=== PATIENT | male | born 1970 | race Caucasian/White ===

== ENCOUNTER 2022-08-26 15:37 | Outpatient (CLI) | payer OTHER, SELFPAY ==
[2022-08-26 19:51] LABS: Chloride* 107 mmol/L (96-114); Potassium* 4.5 mmol/L (3.6-5.1); Sodium* 137 mmol/L (135-149)
[2022-08-26 19:53] LABS: Bilirubin Total* 0.3 mg/dL (0.1-1.5); Carbon Dioxide* 24 mmol/L (20-32); Cholesterol* 216 mg/dL (90-199); Creatinine* 1.1 mg/dL (0.5-1.5); Estimated Glomerular Filt Rate 81 ml/min
[2022-08-26 19:54] LABS: Alanine Aminotransferase* 38 U/L (4-50); Alkaline Phosphatase* 88 U/L (40-150); Aspartate Amino Transferase* 32 U/L (12-35); Blood Urea Nitrogen* 29 mg/dL (7-30); Calcium* 9.3 mg/dL (8.4-10.6); Glucose* 143 mg/dL (60-115); Total Protein* 6.6 g/dL (6.0-8.3)
[2022-08-26 19:55] LABS: HDL Cholesterol* 46 mg/dL (>=40); LDL Cholesterol Calculated 69 mg/dL (<100)
[2022-08-26 19:57] LABS: Creatinine Urine 78.4 mg/dL
[2022-08-26 20:13] LABS: Triglycerides* 506 mg/dL (40-149)
[2022-08-26 22:43] LABS: Microalbumin Creatinine Ratio 4420 mg/g (0-30); Microalbumin Urine 347 mg/dL
[2022-09-01 17:26] LABS: Sex Hormone Binding Globulin 27 nmol/L (19-76); Testosterone, Free LC-MS/MS 63.1 pg/mL (47.0-244.0); Testosterone, LC-MS/MS 316 ng/dL (300-890)
== END 2022-08-26 15:38 | disposition home or self-care (01) ==
LOC: LKVREF 15:38
PROVIDERS: PCP Family Medicine; Visit Provider Family Medicine
DX: E11.9 Type 2 diabetes mellitus without complications (principal); E78.2 Mixed hyperlipidemia; F41.8 Other specified anxiety disorders; I10 Essential (primary) hypertension; R68.82 Decreased libido; E11.29 Type 2 diabetes mellitus with other diabetic kidney complication; R80.9 Proteinuria, unspecified
CPT/HCPCS: 80053; 80061; 82043; 82570; 84153; 84270; 84402; 84403

== ENCOUNTER 2022-08-28 11:06 | Outpatient (CLI) | payer OTHER, SELFPAY ==
[2022-08-28 22:10] LABS: HDL Cholesterol* 36 mg/dL (>=40)
[2022-08-28 22:17] LABS: Glucose* 97 mg/dL (60-115)
[2022-08-28 22:47] LABS: Cholesterol* 242 mg/dL (90-199)
[2022-08-28 23:08] LABS: LDL Cholesterol Calculated 70 mg/dL (<100); Triglycerides* 681 mg/dL (40-149)
== END 2022-08-28 11:07 | disposition home or self-care (01) ==
PROVIDERS: PCP Family Medicine; Visit Provider Family Medicine
DX: E78.2 Mixed hyperlipidemia; E11.29 Type 2 diabetes mellitus with other diabetic kidney complication; R80.9 Proteinuria, unspecified
CPT/HCPCS: 80061; 82947; 84270; 84402; 84403

== ENCOUNTER 2022-10-07 12:53 | Outpatient (CLI) | payer OTHER, SELFPAY ==
[2022-10-07 18:03] LABS: Microalbumin Urine 135 mg/dL
[2022-10-07 19:30] LABS: Creatinine Urine 48.4 mg/dL; Microalbumin Creatinine Ratio 2780 mg/g (0-30)
[2022-10-09 20:32] LABS: Kappa Qnt Free Light Chains 31.84 mg/L (3.30-19.40); Kappa-Lambda Qt FLC W/ Ratio 1.11 (0.26-1.65); Lambda Qnt Free Light Chains 28.67 mg/L (5.71-26.30)
[2022-10-10 02:51] LABS: Complement Component 3 158 mg/dL (90-180); Complement Component 4 33 mg/dL (10-40)
[2022-10-10 22:02] LABS: Albumin 3.73 g/dL (3.75-5.01); Alpha 1 Globulin 0.28 g/dL (0.19-0.46); Alpha 2 Globulin 0.84 g/dL (0.48-1.05); Total Protein, Serum 6.7 g/dL (6.3-8.2)
[2022-10-12 05:44] LABS: ANCA IFA Pattern None Detected (None Detected); ANCA IFA Titer <1:20 (<1:20); Myeloperoxidase (MPO) Ab, IgG 3 AU/mL (0-19); Serine Proteinase 3 Ab IgG 0 AU/mL (0-19)
== END 2022-10-07 12:54 | disposition home or self-care (01) ==
PROVIDERS: PCP Family Medicine; Visit Provider Internal Medicine Nephrology
DX: Z00.00 Encounter for general adult medical examination without abnormal findings (principal); E11.29 Type 2 diabetes mellitus with other diabetic kidney complication; E11.9 Type 2 diabetes mellitus without complications; I10 Essential (primary) hypertension; R80.9 Proteinuria, unspecified; E78.2 Mixed hyperlipidemia; R68.82 Decreased libido
CPT/HCPCS: 82043; 82310; 82570; 82595; 83516; 83520; 83970; 84165; 86160; 86225; 86255

== ENCOUNTER 2023-03-12 12:23 | Outpatient (CLI) | payer OTHER, SELFPAY | END 2023-03-12 12:24 | disposition home or self-care (01) | LOC: LKVREF 12:25 | PROVIDERS: PCP Family Medicine; Visit Provider Physician Assistant | DX: L03.90 Cellulitis, unspecified (principal); Z11.9 Encounter for screening for infectious and parasitic diseases, unspecified | CPT/HCPCS: 86618 ==

== ENCOUNTER 2023-04-28 11:08 | Outpatient (CLI) | payer OTHER, SELFPAY | END 2023-04-28 11:09 | disposition home or self-care (01) | PROVIDERS: PCP Family Medicine; Visit Provider Family Medicine | DX: E11.29 Type 2 diabetes mellitus with other diabetic kidney complication (principal); E11.9 Type 2 diabetes mellitus without complications; I10 Essential (primary) hypertension; F41.8 Other specified anxiety disorders; F98.8 Other specified behavioral and emotional disorders with onset usually occurring in childhood and adolescence; R80.9 Proteinuria, unspecified; M10.9 Gout, unspecified; R68.82 Decreased libido; E78.2 Mixed hyperlipidemia | CPT/HCPCS: 80061; 80076; 82043; 82570; 84550 ==

== ENCOUNTER 2023-05-04 16:57 | Outpatient (CLI) | payer OTHER, SELFPAY | END 2023-05-04 16:58 | disposition home or self-care (01) | LOC: NFLDREF 05-06 13:50 | PROVIDERS: PCP Family Medicine; Referring Provider Family Medicine; Visit Provider Family Medicine | DX: E11.9 Type 2 diabetes mellitus without complications (principal); E11.29 Type 2 diabetes mellitus with other diabetic kidney complication; F41.8 Other specified anxiety disorders; F98.8 Other specified behavioral and emotional disorders with onset usually occurring in childhood and adolescence; I10 Essential (primary) hypertension; R80.9 Proteinuria, unspecified | CPT/HCPCS: 82043; 82570; 84156 ==

== ENCOUNTER 2024-02-08 12:32 | Outpatient (CLI) | payer OTHER, SELFPAY ==
--- OUTSIDE RECORDS SUMMARY | 2024-02-08 12:35 | XMS_ITS | Continuity of Care Document ---
Author Name Unknown Organization [facility] Address [address] [address] [place] [address] Phone Care Team Providers Care Density Control Puncher Name Role Phone Unavailable Unavailable Unavailable Allergies, [...] Copied on Encounter Offic/outpt E&m Estab Low-mod [facility], [address] [address], [place], [place], [id number], [place] tel:[phone] [facility] Non-alcoholic Fatty LiverAbnormal Liver Enzymes 8 No Information Referring [place]: [place], [address] [facility] [place], [address]. tel:[phone] Offic Cons New/estab Mod 40 Mi [facility], [address] [address], [place], [place], [id number], [place] tel:[phone] [facility] Abnormal Liver Enzymes 8-200 8 Pamela Franks. [address] [facility], [address], [place], [place], [address], [place]. tel:[phone] Referring [place]: [place], [address] [place], [address]. tel:[phone] Family History Family Member Type Diagnosis Age At Onset First degree family history Problem (finding) Colon Polyps First degree family history Problem (finding) No history of Ulcerative Colitis First degree family history Problem (finding) No history of Cancer, colon First degree family history Problem (finding) No history of Crohn's Payers Payer name Insurance type Covered democrat ID Authoriza tion(s) No Information Social History [...]
== END 2024-02-08 12:33 | disposition home or self-care (01) ==
PROVIDERS: PCP Family Medicine; Visit Provider Family Medicine
DX: E11.29 Type 2 diabetes mellitus with other diabetic kidney complication (principal); R80.9 Proteinuria, unspecified; Z79.84 Long term (current) use of oral hypoglycemic drugs; Z12.5 Encounter for screening for malignant neoplasm of prostate; Z13.0 Encounter for screening for diseases of the blood and blood-forming organs and certain disorders involving the immune mechanism
CPT/HCPCS: 80061; 80069; 82043; 82570; 82728; 83540; 83550; 84450; 84460; 84550; G0103

== ENCOUNTER 2024-02-09 15:30 | Outpatient (CLI) | payer OTHER, SELFPAY ==
--- OUTSIDE RECORDS SUMMARY | 2024-02-10 06:55 | XMS_ITS ---
Author Name Unknown Organization [facility] Address [address] [place] [address] Care Team Providers Care Supervisor Name Role Phone Unavailable Unavailable Unavailable Surgery Details Not on file Complications Check Surgery Details section. Procedure Estimated Blood Loss Check Surgery Details section. Procedure Findings Check Surgery Details section. Procedure Specimens Taken Check Surgery Details section.
--- OUTSIDE RECORDS SUMMARY | 2024-02-10 06:55 | XMS_ITS | Clinical Summary ---
Author Name Unknown Organization [facility] Address [address] [place] [address] Care Team Providers Care Talent Management Specialist Name Role Phone Unavailable Primary Care Provider Unavailabl e Source Comments You are receiving this document as you are listed as the primary care provider,follow-up provider, or the patient has been referred to you for consultation.This is in compliance with the Medicare andMedicaid EHR Incentive Program,which states Providers who transition their patient to another setting of careor provider of care or refers their patient to another provider of care shouldprovide summary care record for each transition of care or referral. [facility] Allergies Active Allergy Reactions Criticality Noted Date Comments Amlodipine Other, see comments Low 02/06/2022 Varenicline Other, see comments 11/20/2016 suicidal thoughts Zolpidem Other, see comments 11/20/2016 hallucinations Medications Medication Sig Dispensed Refills Start Date End Date Status allopurinol (ZYLOPRIM) 100 MG tablet Take 200 mg by mouth daily. 01/09/2022 Active hydroCHLOROthiazide (ORETIC) 25 MG tablet Daily Act damián losartan (COZAAR) 100 MG tablet Take 100 mg by mouth daily. 01/14/2022 Active metFORMIN XR (GLUCOPHAGE XR) 500 MG 24 hour release tablet Take 500 mg by mouth two times a day. 08/30/2021 Active metoprolol succinate (TOPROL XL) 50 MG 24 hour release tablet Take by mouth. 01/14/2022 A ctive rosuvastatin (CRESTOR) 40 MG tablet Take 40 mg by mouth daily. 01/14/2022 Active nicotine (NICODERM CQ) 21 MG/24HR patch Daily Active nicotine (NICORETTE) 4 MG gum Every 1 Hour as needed Active Active Problems No known active problems Social History Tobacco Use Types Packs/Day Years Used Date Smoking Tobacco: Every Day Cigarettes Sex and Gender Information Value Date Recorded Sex Assigned at Not on file Gender Identity Not on file Sexual Orientation Not on file Last Filed Vital Signs Vital Sign Reading Time Taken Comments Blood Pressure 117/72 02/06/2022 6:41 PM CDT Pulse 76 02/06/2022 6:41 PM CDT Temperature 36.9 ??C (98.5 ??F) 02/06/2022 6:41 PM CD T Respiratory Rate 18 02/06/2022 6:41 PM CDT Oxygen Saturation 99% 02/06/2022 6:41 PM CDT Inhaled Oxygen Concentration - - Weight - - Height - - Body Mass Index - - Plan of Treatment Health Maintenance Due Date Last Done Comments Colon Cancer Screening Plan Due 1970 Hep C Screening (Preventive Services) 1970 PSA Screening Discussion 1970 HIV Screening (Preventive Services) 1986 Adult Preventive Visit 1988 HepB (1) 1989 Cholesterol 2005 Pneumococcal (2 - PCV) 09/06/2010 09/06/2009 Zoster/Shingles (1 of 2) 2020 COVID-19 Vaccine (3 - 2022-2 4 season) 2023 01/11/2021, 12/14/2020 Influenza (Season Ended) 2024 019, 09/18/2017, 07/27/2016 DTaP/Tdap/Td (2 - Tdap) 11/20/2026 11/20/19 17, 10/29/2006 HepA Aged Out No longer eligi ble based on patient's age to complete this topic Hib Aged Out No longer eligi ble based on patient's age to complete this topic IPV (Polio) Aged Out No longer eligi ble based on patient's age to complete this topic MCV4 Aged Out No longer eligi ble based on patient's age to complete this topic
--- OUTSIDE RECORDS SUMMARY | 2024-02-10 06:55 | XMS_ITS | Referral Summary ---
Author Name Unknown Organization [facility] Address [address] [place] [address] Care Team Providers Care Drawbench Operator Name Role Phone Juma Bravo MD Primary Care Provider [phone] Allergies Active Allergy Reactions Criticality Noted Date Comments No Known Drug Allergy 06/22/2003 Medications Medication Sig Dispensed Refills Start Date End Date Status allopurinol (ZYLOPRIM) 100 MG tablet Take 100 mg by mouth daily Active DULoxetine (CYMBALTA) 30 MG capsule Take 30 mg by mouth daily Active losartan-hydrochlor othiazide (HYZAAR) 100-25 MG tablet Take 1 tablet by mouth daily Active metoprolol succinate ER (TOPROL-XL) 50 MG 24 hr tablet Take 150 mg by mouth daily Active indomethacin (INDOCIN) 50 MG capsule Take 50 mg by mouth 3 times daily (with meals) As needed Active aspirin 81 MG EC tablet Take 81 mg by mouth daily Active fenofibrate micronized (LOFIBRA) 200 MG capsuleIndications: Hypertriglyceridemi a Take 1 capsule (200 mg) by mouth every morning (before breakfast) 90 capsule 3 06/01/2019 Active rosuvastatin (CRESTOR) 40 MG tabletIndications:H ypertriglyceridemia Take 1 tablet (40 mg) by mouth daily 90 tablet 3 06/20/2019 Active omega-3 acid ethyl esters (LOVAZA) 1 g capsuleIndications: Hyperlipidemia LDL goal <100,Hypertriglycer idemia Take 2 capsules (2 g) by mouth 2 times daily 360 capsule 10/25/2019 Active Active Problems Problem Noted Date Diagnosed Date Essential hypertension, benign 05/12/2019 Tobacco abuse 05/12/2019 ADD (attention deficit disorder) 05/10/2019 Gout 05/10/2019 History of peritonsillar abscess 05/10/2019 Hypertension 05/10/2019 IGT (impaired glucose tolerance) 05/10/2019 Memory loss 05/10/2019 Mixed hyperlipidemia 05/10/2019 DM2 (diabetes mellitus, type 2) 05/10/2019 Tonsillar mass 05/10/2019 Hypertriglyceridemia 05/10/2019 Depression with anxiety 11/25/2016 Sleep apnea 05/29/2008 Social History Tobacco Use Types Packs/Day Years Used Date Smoking Tobacco: Every Day Cigarettes 1 15 Smokeless Tobacco: Never Tobacco Cessation:Ready to Q uit: No; Counseling Given: Yes Alcohol Use Standard Drinks/Week Comments Yes 0 (1 standard drink = 0.6 oz pur e alcohol) moderate use AUDIT-C Answer Date Recorded Q1: How often do you have a drink containing alc ohol? 2-4 times a month 05/12/2019 Average Number of Drinks Not on file 019 Frequency of Binge Drinking Not on file 04/28 Adolescent Education Answer Date Record ed Getting School Help Needed Not on file 07/05 Sex and Gender Information Value Date Recorded Sex Assigned at Not on file Gender Identity Not on file Sexual Orientation Not on file Last Filed Vital Signs Vital Sign Reading Time Taken Comments Blood Pressure 110/72 02/06/2022 8:45 PM CDT Pulse 60 02/06/2022 8:45 PM CDT Temperature 37.1 ??C (98.7 ??F) 02/06/2022 7:07 PM CD T Respiratory Rate 18 02/06/2022 7:07 PM CDT Oxygen Saturation 100% 02/06/2022 7:07 PM CDT Inhaled Oxygen Concentration - - Weight 86.2 kg (190 lb) 02/06/2022 7:07 PM CDT Height 182.9 cm (6') 06/20/2019 8:50 AM CDT Body Mass Index 25.77 06/20/2019 8:50 AM CDT Plan of Treatment Not on file Procedures Procedure Name Priority Date/Time Associated Diagnosis Comments BASIC METABOLIC PANEL STAT 02/06/2022 7:16 PM CDT LIPID PROFILE STAT 06/20/2019 8:10 AM CDT Hypertriglyceridemia Mixed hyperlipidemia HEMOGLOBIN A1C Routine 05/09/2019 from Last 3 Months or Most Recently Relevant to Health Maintenance Results * (ABNORMAL) Basic metabolic panel (02/06/2022 7:16 PM CDT) Sodium 139 133 - 144 mmol/L 02/06/2022 7:54 PM CDT LABORATORY Potassium 4.3 3.4 - 5.3 mmol/L 02/06/2022 7:54 PM CDT [facility] Chloride 106 94 - 109 mmol/L 02/06/2022 7:54 PM CDT [facility] Carbon Dioxide (CO2) 27 20 - 32 mmol/L 02/06/2022 7:54 PM CDT LABORATORY Anion Gap 6 3 - 14 mmol/L 02/06/2022 7:54 PM CDT LABORATORY Urea Nitrogen 31(H) 7 - 30 mg/dL 02/06/2022 7:54 PM CDT LABORATORY Creatinine 0.93 0.66 - 1.25 mg/dL 02/06/2022 7:54 PM CDT LABORATORY Calcium 9.1 8.5 - 10.1 mg/dL 02/06/2022 7:54 PM CDT LABORATORY Glucose 147(H) 70 - 99 mg/dL 02/06/2022 7:54 PM CDT [facility] GFR Estimate >90 >60 mL/min/1.7 3m2 02/06/2022 7:54 PM CDT LABORATORY Comment:Effective August 292020 eGFRcr in adults is calculated using the 2020 CKD-EPI creatinine equation which includes age and gender (Sarah et al., NEJM, DOI: 10.1056/JCHFid3458344) Blood BLOOD SPECIMEN / Unknown Venipuncture / Unknown 02/06/2022 7:16 PM CDT 02/06/2022 7:21 PM CDT Chayo Brown MD LAB - BLOOD [facility] Organization Address City/State/ZIP Co de Phone Number LABORATORY [facility] [address] Lab (1st floor, no room number) [place] [address], [facility] [phone] * (ABNORMAL) Lipid Profile (06/20/2019 8:10 AM CDT) Cholesterol 228(H) <200 mg/dL 06/20/2019 8:45 AM CDT [facility] Comment:Desirable: <200 mg/d l Triglycerides 630(H) <150 mg/dL 06/20/2019 8:48 AM T [facility] Comment: Borderline high: ??150-199 mg/dl High: ? 200-499 mg/dl Very high: ? >499 mg/dl Fasting specimen HDL Cholesterol 39(L) >39 mg/dL 06/20/2019 8:48 AM T [facility] LDL Cholesterol Calculated Cannot estimate LDL when triglyceride exceeds 400 mg/dL <100 mg/dL 06/20/2019 8:48 AM T [facility] Non HDL Cholesterol 189(H) <130 mg/dL 06/20/2019 8:48 AM T [facility] Comment: Above Desirable: ??130-159 mg/dl Borderline high: ??160-189 mg/dl High: ? 190-219 mg/dl Very high: ? >219 mg/dl Blood specimen (specimen) 06/20/2019 8:10 AM CDT 06/20/2019 8:15 AM CDT Billy Ashraf MD LAB - BLOOD ORDERAB LES [facility] [address] [place] [address], [facility] [phone] [facility] [address] [address], [facility] [phone] * (ABNORMAL) Hemoglobin A1c (05/09/2019) Hemoglobin A1C 5.9(A) 0 - 5.6 % [facility] Blood specimen (specimen) 05/09/2019 Provider Outside LAB - BLOOD ORDERABL ES [facility] [address] [place] [address], [facility] [phone] from Last 3 Months or Most Recently Relevant to Health Maintenance Care Teams Drawbench Operator Relationship Specialty Start Date End Date Juma Bravo MD PCP - General Family Practice 05/10/19
--- OUTSIDE RECORDS SUMMARY | 2024-02-10 06:55 | XMS_ITS | Clinical Summary ---
Author Name Unknown Organization [employer] [facility] Address [place], [place] [address] Care Team Providers Care Second Hand Paper Machine Name Role Phone Donn Dumas MD Primary Care Provider [phone] Allergies Active Allergy Reactions Criticality Noted Date Comments Zolpidem Behavioral Disturbances 11/20/2016 hallucinations Varenicline Behavioral Disturbances 11/20/2016 suicidal thoughts Medications Medication Sig Dispensed Refills Start Date End Date Status buPROPion (WELLBUTRIN XL) 150 mg Extended-Release tabletIndications:Depr ession, unspecified depression type,Tobacco abuse Take 1 tablet by mouth every morning. 30 tablet 1 11/21/2016 Active Active Problems Problem Noted Date Diagnosed Date Depression with anxiety 11/25/2016 Sleep apnea 05/29/2008 Immunizations Name Administration Dates Next Due Tdap 11/20/2016 Family History Medical History Relation Name Comments No Known Problems Brother Diabetes type II Father No Known Problems Half-Brother 1 No Known Problems Half-Brother 2 Diabetes type II Mother Relation Name Status Comments Brother Father Half-Brother 1 Half-Brother 2 Mother Social History Tobacco Use Types Packs/Day Years Used Date Smoking Tobacco: Every Day Cigarettes Smokeless Tobacco: Never Comments:2 packs week Sex and Gender Information Value Date Recorded Sex Assigned at Not on file Gender Identity Not on file Sexual Orientation Not on file Obstetrics History Last Filed Vital Signs Vital Sign Reading Time Taken Comments Blood Pressure 136/84 11/20/2016 10:40 AM BRAKE LINING FINISHER ASBESTOS Pulse 64 11/20/2016 9:58 AM BRAKE LINING FINISHER ASBESTOS Temperature - - Respiratory Rate - - Oxygen Saturation - - Inhaled Oxygen Concentration - - Weight 87 kg (191 lb 11.2 oz) 11/20/2016 9:58 AM BRAKE LINING FINISHER ASBESTOS Height 184.8 cm (6' 0.75) 11/20/2016 9:58 AM CS T Body Mass Index 25.47 11/20/2016 9:58 AM BRAKE LINING FINISHER ASBESTOS Plan of Treatment Health Maintenance Due Date Last Done Comments HIV for age 15-65 1985 Hepatitis C screening for ag e 18-79 1988 Colonoscopy through age 75 2015 BMI (ht and wt on same day) for age 18+ 11/20/2017 11/20/2016 Depression screening for age 12+ 11/20/2017 11/20/19 17 Zoster (shingles) series for age 50+ (1 of 2) 2020 Lipids for age 45-75 11/20/2021 11/20/2016 COVID-19 vaccine series (2022- season) 2023 Influenza for age 50-64 05/29/2024 Tetanus booster 11/20/2026 11/20/2016 Tdap Completed 11/20/2016 Pneumococcal series for age 6-64 Aged Out No longer eligible based on patient's age to complete this topic Procedures Procedure Name Priority Date/Time Associated Diagnosis Comments LIPID PANEL W REFLEX MEASURED LDL Routine 11/20/2016 10:46 AM BRAKE LINING FINISHER ASBESTOS Annual physical exam from Last 3 Months or Most Recently Relevant to Health Maintenance Results * (ABNORMAL) LIPID PANEL W REFLEX MEASURED LDL (11/20/2016 10:46 AM BRAKE LINING FINISHER ASBESTOS) CHOLESTEROL,TOTAL 313(H) 100 - 199 mg/dL 11/20/2016 8:10 PM [facility] [employer] LABORATORY-[facility] TRAL LABORATORY TRIGLYCERIDES 379(H) <150 mg/dL 11/20/2016 8:10 PM [facility] HDL CHOLESTEROL 51 >40 mg/dL 7 8:10 PM [facility] TRAL LABORATORY NON-HDL CHOLESTEROL 262(H) <145 mg/dl 11/20/2016 8:10 PM [facility] CHOL/HDL RATIO 6.14(H) <4.50 11/20/2016 8:10 PM [facility] TRAL LABORATORY LDL CHOLESTEROL 186(H) <=130 mg/dL 11/20/2016 8:10 PM [facility] TRAL LABORATORY PATIENT STATUS FASTING 11/20/2016 8:10 PM BRAKE LINING FINISHER ASBESTOS [facility] TRAL LABORATORY Blood BLOOD SPECIMEN / Unknown Venipuncture / Unknown 11/20/2016 10:46 AM BRAKE LINING FINISHER [employer]OS 11/20/2016 10:46 AM BRAKE LINING FINISHER ASBESTOS Donn Dumas MD CHEMISTRY [facility] [address] [place] [address], from Last 3 Months or Most Recently Relevant to Health Maintenance Care Teams Second Hand Paper Machine Relationship Specialty [place] [address] [place] [address] PCP - General Family Practice 11/14/16
--- OUTSIDE RECORDS SUMMARY | 2024-02-10 06:55 | XMS_ITS | Continuity of Care Document ---
Author Name Unknown Organization [facility] Address [address] [address] [place] [address] Phone Care Team Providers Care Aerial Installer Name Role Phone Unavailable Unavailable Unavailable Allergies, [...] Copied on Encounter Offic/outpt E&m Estab Low-mod [facility], [address] [address], [place], [place], [address], [place] tel:[phone] [facility] Non-alcoholic Fatty LiverAbnormal Liver Enzymes 8 No Information Referring [place], [address] [facility] [place], [address]. tel:[phone] Offic Cons New/estab Mod 40 Mi [facility], [address] [address], [place], [place], [address], [place] tel:[phone] [facility] Abnormal Liver Enzymes 8-200 8 Pamela Franks. [address] [facility], [address], [place], [place], [address], [place]. tel:[phone] Referring [place]: [place], [address] [place], [address]. tel:[phone] Family History Family Member Type Diagnosis Age At Onset First degree family history Problem (finding) Colon Polyps First degree family history Problem (finding) No history of Ulcerative Colitis First degree family history Problem (finding) No history of Cancer, colon First degree family history Problem (finding) No history of Crohn's Payers Payer name Insurance type Covered green party ID Authoriza tion(s) No Information Social History [...]
--- OUTSIDE RECORDS SUMMARY | 2024-02-10 06:55 | XMS_ITS | Clinical Summary ---
Author Name Unknown Organization [facility] Address [address] [place] [address] Care Team Providers Care Brake Lining Driller Name Role Phone Unavailable Primary Care Provider Unavailabl e Source Comments Patient records contain information from all sites at [facility]. For routine questions regarding patient records, call [phone] during business hours, M-F 8:00 AM - 5:00 PM Central Time. Record requests for emergency care only can be directed to [phone] at any time.[facility] Medications Medication Sig Dispensed Refills Start Date End Date Status allopurinoL (ZYLOPRIM) 100 mg tablet Take 200 mg by mouth daily. 01/09/[address] tablet Take 81 mg by mouth daily. Active DULoxetine (CYMBALTA) [address] capsule Take 30 mg by mouth daily. Active fenofibrate micronized (LOFIBRA) 200 mg capsule Take 200 mg by mouth. 06/01/2019 Active losartan (COZAAR) 100 mg tablet Take 100 mg by mouth daily. 01/14/2022 Active rosuvastatin (CRESTOR) 40 mg tablet Take 40 mg by mouth daily. 06/20/2019 Active metFORMIN (GLUCOPHAGE) 500 mg tablet Take 1 tablet (500 mg total) by mouth 2 (two) times a day with meals. 180 tablet 3 10/07/2022 Active hydroCHLOROthiazide (HYDRODIURIL) 25 mg tablet Take 1 tablet (25 mg total) by mouth daily. 90 tablet 3 10/07/2022 Active carvediloL (COREG) 12.5 mg tablet Take 1 tablet (12.5 mg total) by mouth 2 (two) times a day with meals. 180 tablet 3 06/02/2023 06/01/2024 Active Active Problems Problem Noted Date Diagnosed Date Proteinuria 10/07/2022 Hypertension And Chronic Kidney Disease Stage 1 10/07/2022 Amnesia 05/10/2019 Diabetes Mellitus Type 2 05/10/2019 Gout 05/10/2019 Hyperlipidemia Mixed 05/10/2019 Sleep Apnea 05/29/2008 Social History Tobacco Use Types Packs/Day Years Used Date Smoking Tobacco: Never Assessed Nutrition Answer Date Recorded Nutrition: EVOO Fat Source Unknown 03/07 Nutrition: Servings of Fruits/Vegetables per Day Not on file 03/07/2021 Dental Answer Date Recorded Dental: Regular Dentist Unknown 03/07/20 21 Sex and Gender Information Value Date Recorded Sex Assigned at Not on file Gender Identity Not on file Sexual Orientation Not on file Last Filed Vital Signs Vital Sign Reading Time Taken Comments Blood Pressure 148/98 06/02/2023 9:10 AM CDT Pulse 84 06/02/2023 9:10 AM CDT Temperature - - Respiratory Rate - - Oxygen Saturation - - Inhaled Oxygen Concentration - - Weight 92 kg (202 lb 13.2 oz) 06/02/2023 9:10 AM CDT Height 182.8 cm (5' 11.97) 06/02/2023 9:10 AM C DT Body Mass Index 27.53 06/02/2023 9:10 AM CDT Plan of Treatment Health Maintenance Due Date Last Done Comments CT Colonography 1970 Cologuard 1970 Colonoscopy 1970 Colorectal Cancer Screening 1970 Diabetic Office Visit with Foot Exam 1970 Dilated Eye Exam 1970 FIT 1970 HIV Screening 1970 Hepatitis C Screening 1970 Urine Albumin 1970 Hepatitis B Vaccines (1 of 3 - 19+ 3-dose series) 1989 Pneumococcal vaccine (0-64 y ears) (2 of 2 - PCV) 09/06/2010 09/06/2009 Hemoglobin A1C 11/09/2019 05/09/2019 Zoster Vaccines (1 of 2) 2020 Creatinine Level (Kidney Fun ction Test) 02/06/2023 02/06/2022 Potassium Level 02/06/2023 02/06/2022 Sodium Level 02/06/2023 02/06/2022 COVID-19 Vaccine (3 - 2022-24 season) 2023, 12/14/2020 Influenza Vaccine (#1) 2023 9, 09/18/2017, 07/27/2016 Office Visit for Blood Press ure Check / Re-check 09/01/2023 06/02/2023 Depression Screening (Annual PHQ-2) 09/28/2023 Lipid (Cholesterol) Screening 06/20/2024, 05/12/2019, 05/09/2019 DTaP,Tdap,and Td Vaccines (2 - Td or Tdap) 11/20/2026 11/20/2016, 10/29/2006 Procedures Procedure Name Priority Date/Time Associated Diagnosis Comments EXTI BASIC METABOLIC PANEL, FASTING, S Routine 02/06/2022 7:16 PM CDT EXTI LIPID PANEL, S Routine 06/20/2019 8 :10 AM CDT EXTI HEMOGLOBIN A1C, B Routine 05/09/2019 from Last 3 Months or Most Recently Relevant to Health Maintenance
--- OUTSIDE RECORDS SUMMARY | 2024-02-10 06:55 | XMS_ITS | Clinical Summary ---
Author Name Unknown Organization [facility] Address [address] [place] [address] Care Team Providers Care Wedding Photographer Name Role Phone uJma Bravo MD Primary Care Provider [phone] Allergies Active Allergy Reactions Criticality Noted Date [...] Depression with anxiety 11/25/2016 Sleep apnea 05/29/2008 Family History Medical History Relation Comments Diabetes Father Hypertension Father Family History Negative Mother Relation Status Comments Father Alive Mother Social History Tobacco Use Types Packs/Day [...] 06/20/2019 8:50 AM CDT Plan of Treatment Health Maintenance Due Date Last Done Comments ADVANCE CARE PLANNING 1970 ANNUAL REVIEW OF HM ORDERS 1970 CT COLONOGRAPHY 1970 DIABETIC FOOT EXAM 1970 EYE EXAM 1970 FIT 1970 FLEX SIG 1970 MICROALBUMIN 1970 sDNA (Cologuard) 1970 COLONOSCOPY 1980 COLORECTAL CANCER SCREENING 1980 HIV SCREENING 1985 HEPATITIS C SCREENING 1988 HEPATITIS B IMMUNIZATION (1 of 3 - 19+ 3-dose series) 1989 YEARLY PREVENTIVE VISIT 06/22/2004 06/22/2003 Pneumococcal Vaccine: Pediatrics (0 to 5 Years) and At-Risk Patients (6 to 64 Years) (2 of 2 - PCV) 09/06/2010 09/06/2009 A1C 08/09/2019 05/09/2019 LUNG CANCER SCREENING 2020 ZOSTER IMMUNIZATION (1 of 2) 2020 LIPID 06/20/2020 06/20/2019, 04/28, 05/09/2019, Additional history exists BMP 02/06/2023 02/06/2022, 06/26/2003 COVID-19 Vaccine ( season) 2023 PHQ-2 (once per calendar year) 2023 INFLUENZA VACCINE (Season Ended) 2024 01/03/2019, 09/18/2017, 10/08/2009 DTAP/TDAP/TD IMMUNIZATION (2 - Td or Tdap) 11/20/2026 11/20/2016, 10/29/2006 HPV IMMUNIZATION Aged Out No longer e ligible based on patient's age to complete this topic IPV IMMUNIZATION Aged Out No longer e ligible based on patient's age to complete this topic MENINGITIS IMMUNIZATION Aged Out No l onger eligible based on patient's age to complete this topic RSV MONOCLONAL ANTIBODY Aged Out No l onger eligible based on patient's age to complete [...] - 5.3 mmol/L 02/06/2022 7:54 PM CDT LABORATORY Chloride 106 94 - 109 mmol/L 02/06/2022 7:54 PM CDT LABORATORY Carbon Dioxide (CO2) 27 20 - [...] - 99 mg/dL 02/06/2022 7:54 PM CDT LABORATORY GFR Estimate >90 >60 mL/min/1.7 3m2 02/06/2022 7:54 PM CDT LABORATORY Comment:Effective August 292020 eGFRcr in adults is calculated using the 2020 CKD-EPI creatinine equation which includes age and gender (Sarah et al., NEJ, DOI: 10.1056/NSFLeh9032746) Blood BLOOD SPECIMEN / Unknown Venipuncture / Unknown 02/06/2022 7:16 PM CDT 02/06/2022 7:21 PM CDT Chayo Brown MD LAB - BLOOD [facility] [address] [facility] (1st floor, no room number) [place] [address], [facility] [phone] * (ABNORMAL) Lipid Profile (06/20/2019 8:10 AM CDT) Cholesterol 228(H) <200 mg/dL 06/20/2019 8:45 AM T [facility] Comment:Desirable: <200 mg/d l Triglycerides 630(H) <150 mg/dL 06/20/2019 8:48 AM T [facility] Comment: Borderline high: ??150-199 mg/dl High: ? 200-499 mg/dl Very high: ? >499 mg/dl Fasting specimen HDL Cholesterol 39(L) >39 mg/dL 06/20/2019 8:48 AM T [facility] LDL Cholesterol Calculated Cannot estimate LDL when triglyceride exceeds 400 mg/dL <100 mg/dL 06/20/2019 8:48 AM T [facility] Non HDL Cholesterol 189(H) <130 mg/dL 06/20/2019 8:48 AM [facility] Comment: Above Desirable: ??130-159 mg/dl Borderline high: ??160-189 mg/dl High: ? 190-219 mg/dl Very high: ? >219 mg/dl Blood specimen (specimen) 06/20/2019 8:10 AM CDT 06/20/2019 8:15 AM CDT Billy Ashraf MD LAB - BLOOD ORDERAB LES [facility] [address] [place] [address], [facility] [phone] [facility] [address] [place] [address], [facility] [phone] * (ABNORMAL) Hemoglobin A1c (05/09/2019) Hemoglobin A1C 5.9(A) 0 - 5.6 % [facility] Blood specimen (specimen) 05/09/2019 Provider Outside LAB - BLOOD ORDERABL ES [facility] [address] [place] [address], [facility] [phone] from Last 3 Months or Most Recently Relevant to Health Maintenance Care Teams Wedding Photographer Relationship Specialty Start Date End Date Juma Bravo MD PCP - General Family Practice 05/10/19
== END 2024-02-09 15:31 | disposition home or self-care (01) ==
LOC: NFLDREF 02-10 06:53
PROVIDERS: PCP Family Medicine; Referring Provider Family Medicine; Visit Provider Family Medicine
DX: E11.29 Type 2 diabetes mellitus with other diabetic kidney complication (principal); R80.9 Proteinuria, unspecified; I10 Essential (primary) hypertension; Z79.84 Long term (current) use of oral hypoglycemic drugs
CPT/HCPCS: 82043; 82570

== ENCOUNTER 2025-02-24 13:24 | Outpatient (CLI) | payer OTHER, SELFPAY | END 2025-02-24 13:25 | disposition home or self-care (01) | PROVIDERS: PCP Family Medicine; Visit Provider Family Medicine | DX: E78.2 Mixed hyperlipidemia (principal); Z12.5 Encounter for screening for malignant neoplasm of prostate | CPT/HCPCS: 80061; G0103 ==

== ENCOUNTER 2025-03-15 12:04 | Outpatient (CLI) | payer OTHER, SELFPAY | END 2025-03-15 12:05 | disposition home or self-care (01) | LOC: NFLDREF 03-19 02:48 | PROVIDERS: PCP Family Medicine; Referring Provider Family Medicine; Visit Provider Family Medicine | DX: N17.9 Acute kidney failure, unspecified (principal); N18.9 Chronic kidney disease, unspecified; I12.9 Hypertensive chronic kidney disease with stage 1 through stage 4 chronic kidney disease, or unspecified chronic kidney disease; E11.22 Type 2 diabetes mellitus with diabetic chronic kidney disease; R68.82 Decreased libido; R80.9 Proteinuria, unspecified; M10.9 Gout, unspecified | CPT/HCPCS: 80069; 80076; 82043; 82550; 82570; 82728; 83540; 83735; 84550; 86141; 87086 ==

== ENCOUNTER 2025-03-27 10:45 | Outpatient (CLI) | payer OTHER, SELFPAY ==
--- NOTE | 2025-03-27 10:45 | CRLHL7_ITS ---
For Patients: As a result of the Century Cures Act, medical imaging exams and procedure reports are released immediately into your electronic medical record. You may view this report before your referring provider. If you have questions, please contact your health care provider. INDICATION: Acute on chronic renal failure TECHNIQUE: Grayscale, color Doppler and spectral Doppler evaluation of the kidneys and renal arteries performed bilaterally. COMPARISON: None available FINDINGS: BILATERAL RENAL ARTERY DUPLEX ULTRASOUND ABDOMINAL AORTA: Peak systolic velocity = 99 cm/s. No aortic aneurysm. RIGHT KIDNEY: 11.4 cm in length. There is no hydronephrosis. Peak systolic velocity = 97 cm/second Renal artery to aortic peak systolic velocity ratio = 1.0 Resistive indices: 0.6 Renal vein = patent LEFT KIDNEY: 13.1 cm in length. There is no hydronephrosis. Peak systolic velocity = 97 cm/second Renal artery to aortic peak systolic velocity ratio = 1.0 Resistive indices: 0.7 Renal vein = patent Renal cortex is echogenic bilaterally. No hydronephrosis. IMPRESSION: No evidence of significant renal artery stenosis. Chronic renal disease. Dictated by Naga Trujillo MD @ 03/27/2025 3:03:05 PM (Electronically Signed)
--- NOTE | 2025-03-27 11:45 | CRLHL7_ITS ---
For Patients: As a result of the Century Cures Act, medical imaging exams and procedure reports are released immediately into your electronic medical record. You may view this report before your referring provider. If you have questions, please contact your health care provider. INDICATION: Right leg swelling COMPARISON: None. TECHNIQUE: A compression venous ultrasound exam was performed of the right lower extremity using crook-scale imaging, color Doppler and spectral Doppler analysis. FINDINGS: Sonographic imaging of the right lower extremity demonstrates normal compressibility and color Doppler venous blood flow within the common femoral vein and deep femoral vein. No GSV clot. Venous insufficiency of the right GSV is suspected. Within the thigh, the femoral vein is patent and compressible. At a lower level, the popliteal and posterior tibial veins also show normal compressibility and color Doppler venous blood flow. Limited imaging of the contralateral groin demonstrates a normal spectral waveform and color Doppler venous blood flow within the left common femoral vein. IMPRESSION: No evidence of deep vein thrombosis within the right lower extremity. Suggestion of venous insufficiency involving the right greater saphenous vein. Dictated by Naga Trujillo MD @ 03/27/2025 2:08:10 PM (Electronically Signed)
--- OUTSIDE RECORDS SUMMARY | 2025-03-28 02:25 | XMS_ITS | Clinical Summary ---
Author Organization [facility] Address [address] [place] [address] Care Team Providers Care Data Management Analyst Name Role Phone Unavailable Primary Care Provider [...] for each transition of care or referral. [email or web address] Allergies Active Allergy Reactions Criticality Noted Date Comments Amlodipine Other, see comments Low 02/06/2022 Varenicline Other, see comments 11/20/2016 suicidal thoughts Zolpidem Other, see comments 11/20/2016 hallucinations Medications allopurinol (ZYLOPRIM) 100 MG tablet Take 200 mg by mouth daily. 01/09/2022 Active hydroCHLOROthiaz qing (ORETIC) 25 MG tablet Daily Active losartan (COZAAR) 100 MG tablet Take 100 mg by mouth daily. 01/14/2022 Active metFORMIN XR (GLUCOPHAGE XR) 500 MG 24 hour release tablet Take 500 mg by mouth two times a day. 08/30/2021 Active metoprolol succinate (TOPROL XL) 50 MG 24 hour release tablet Take by mouth. 01/14/2022 Active rosuvastatin (CRESTOR) 40 MG tablet Take 40 [...] Recorded Sex Assigned at Not on file Legal Sex Male 1:21 PM CDT Gender Identity Not on file Sexual Orientation Not on file Last Filed Vital Signs Vital Sign Reading Time Taken Comments Blood Pressure 117/72 02/06/2022 6:41 PM CDT Pulse 76 02/06/2022 6:41 PM CDT Temperature 36.9 C (98.5 F) 02/06/2022 6:41 PM CDT Respiratory Rate 18 02/06/2022 6:41 PM CDT [...] Services) 1986 Adult Preventive Visit 1988 HepB Vaccine (1) 1989 Cholesterol 2005 Pneumococcal Vaccine 50+ Yrs (2 of 2 - PCV) 2020 09/06/2009 Zoster/Shingles Vaccine (1 o f 2) 2020 COVID-19 Vaccine (3 - 2023-2 5 season) 2024 01/11/2021, 12/14/2020 Influenza Vaccine (Season Ended) 2025 01/03/2019, 09/18/2017, 07/27/2016 DTaP/Tdap/Td Vaccine (2 - Tdap) 11/20/2026 11/20/2016, 10/29/2006 HepA Vaccine Aged Out No longer eligi ble based on patient's age to complete this topic Hib Vaccine Aged Out No longer eligi ble based on patient's age to complete this topic IPV (Polio) Vaccine Aged Out No longe r eligible based on patient's age to complete this topic MCV4 Vaccine Aged Out No longer eligi ble based on patient's age to complete this topic Meningococcal B Vaccine Aged Out No l onger eligible based on patient's age to complete this topic Insurance [facility]
--- OUTSIDE RECORDS SUMMARY | 2025-03-28 02:25 | XMS_ITS | Clinical Summary ---
Author Organization [facility] Address [address] [place] [address] Care Team Providers Care Centerless Grinder Name Role Phone Juma Bravo MD Primary Care Provider [phone] Allergies Active Allergy Reactions Criticality Noted Date Comments No Known Drug Allergy 06/22/2003 Medications allopurinol (ZYLOPRIM) 100 MG tablet Take 100 mg by mouth daily Active DULoxetine (CYMBALTA) 30 MG capsule Take 30 mg by mouth daily Active losartan-hydroc hlorothiazide (HYZAAR) 100-25 MG tablet Take 1 tablet by mouth daily Active metoprolol succinate ER (TOPROL-XL) 50 MG 24 hr tablet Take 150 mg by mouth daily Active indomethacin (INDOCIN) 50 MG capsule Take 50 mg by mouth 3 times daily (with meals) As needed Active aspirin 81 MG EC tablet Take 81 mg by mouth daily Active fenofibrate micronized (LOFIBRA) 200 MG capsuleIndicati ons:Hypertrigly ceridemia Take 1 capsule (200 mg) by mouth every morning (before breakfast) 90 capsule 3 06/01/2019 Active rosuvastatin (CRESTOR) 40 MG tabletIndicatio ns:Hypertriglyc eridemia Take 1 tablet (40 mg) by mouth daily 90 tablet 3 06/20/2019 Active omega-3 acid ethyl esters (LOVAZA) 1 g capsuleIndicati ons:Hyperlipide scottie LDL goal <100,Hypertrigl yceridemia Take 2 capsules (2 g) by mouth [...] at Not on file Legal Sex Male 3:15 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[employer]OCKTAIL [employer]OUNGE Gender Identity Not on file Sexual Orientation Not on file Last Filed Vital Signs Vital Sign Reading Time Taken Comments Blood Pressure 110/72 02/06/2022 8:45 PM CDT Pulse 60 02/06/2022 8:45 PM CDT Temperature 37.1 C (98.7 F) 02/06/2022 7:07 PM CDT Respiratory Rate 18 02/06/2022 7:07 PM CDT Oxygen Saturation 100% 02/06/2022 7:07 PM CDT Inhaled Oxygen Concentration - - Weight 86.2 kg (190 lb) 02/06/2022 7:07 PM CDT Height 182.9 cm (6') 06/20/2019 8:50 AM CDT Body Mass Index 25.77 06/20/2019 8:50 AM CDT Plan of Treatment Not on file Insurance [facility] CHOICE Care Teams Centerless Grinder Relationship Specialty Start Date End Date Juma Bravo MD [facility] [address] [place], [place] [id number] PCP - General Family Practice 05/10/19
--- OUTSIDE RECORDS SUMMARY | 2025-03-28 02:25 | XMS_ITS | Clinical Summary ---
Author Organization [facility] Address [address] [place] [address] Care Team Providers Care Air Purifier Servicer Name Role Phone Donn Dumas MD Primary Care Provider [phone] Allergies Active Allergy Reactions Criticality Noted Date Comments Zolpidem Behavioral Disturbances 11/20/2016 hallucinations Varenicline Behavioral Disturbances 11/20/2016 suicidal thoughts Medications buPROPion (WELLBUTRIN XL) 150 mg Extended-Release tabletIndication s:Depression, unspecified depression type,Tobacco abuse Take 1 tablet by mouth every morning. 30 tablet 1 11/21/2016 Active Active Problems Problem Noted Date Diagnosed Date Depression with anxiety 11/25/2016 Sleep apnea 05/29/2008 Immunizations Immunization Administration Dates Next Due Tdap 11/20/2016 Family [...] at Not on file Legal Sex Male 8:08 AM SENIOR INFORMATION SECURITY ANALYST Gender Identity Not on file Sexual Orientation Not on file Obstetrics History Last Filed Vital Signs Vital Sign Reading Time Taken Comments Blood Pressure 136/84 11/20/2016 10:40 AM SENIOR INFORMATION SECURITY ANALYST Pulse 64 11/20/2016 9:58 AM SENIOR INFORMATION SECURITY ANALYST Temperature - - Respiratory Rate - - Oxygen Saturation - - Inhaled Oxygen Concentration - - Weight 87 kg (191 lb 11.2 oz) 11/20/2016 9:58 AM SENIOR INFORMATION SECURITY ANALYST Height 184.8 cm (6' 0.75) 11/20/2016 9:58 AM CS T Body Mass Index 25.47 11/20/2016 9:58 AM SENIOR INFORMATION SECURITY ANALYST Plan of Treatment Health Maintenance Due Date Last Done Comments HIV for age 15-65 1985 Hepatitis C screening for age 18-79 1988 Hepatitis B series for 19+ ( 1 of 3 - 19+ 3-dose series) 1989 Colonoscopy through age 75 2015 BMI (ht and wt on same day) for age 18+ 11/20/2017 0 11/20/2016 Depression screening for age 12+ 11/20/2017 11/20/19 17 Pneumococcal series for age 50+ (1 of 1 - PCV) 020 Zoster (shingles) series for age 50+ (1 of 2) 05/01/20 20 Lipids for age 45-75 11/20/2021 11/20/2016 COVID-19 vaccine series ( season) Influenza Vaccine (Season Ended) 2025 Tetanus booster 11/20/2026 11/20/2016 Tdap Completed 11/20/2016 Procedures Procedure Name Priority Date/Time Associated Diagnosis Comments LIPID PANEL W REFLEX MEASURED LDL Routine 11/20/2016 10:46 AM SENIOR INFORMATION SECURITY ANALYST Annual physical exam from Last 3 Months or Most Recently Relevant to Health Maintenance Results * (ABNORMAL) LIPID PANEL W REFLEX MEASURED LDL (11/20/2016 10:46 AM SENIOR INFORMATION SECURITY ANALYST) CHOLESTEROL,TOTAL 313(H) 100 - 199 mg/dL 11/20/2016 8:10 PM SENIOR INFORMATION SECURITY ANALYST [facility] TRIGLYCERIDES 379(H) <150 mg/dL 11/20/2016 8:10 PM SENIOR INFORMATION SECURITY ANALYST [facility] HDL CHOLESTEROL 51 >40 mg/dL 7 8:10 PM SENIOR INFORMATION SECURITY ANALYST [facility] NON-HDL CHOLESTEROL 262(H) <145 mg/dl 11/20/2016 8:10 PM SENIOR INFORMATION SECURITY ANALYST [facility] CHOL/HDL RATIO 6.14(H) <4.50 11/20/2016 8:10 PM SENIOR INFORMATION SECURITY ANALYST [facility] LDL CHOLESTEROL 186(H) <=130 mg/dL 11/20/2016 8:10 PM SENIOR INFORMATION SECURITY ANALYST [facility] PATIENT STATUS FASTING 11/20/2016 8:10 PM SENIOR INFORMATION SECURITY ANALYST [facility] Blood BLOOD SPECIMEN / Unknown Venipuncture / Unknown 11/20/2016 10:46 AM SENIOR INFORMATION SECURITY ANALYST 11/20/2016 10:46 AM SENIOR INFORMATION SECURITY ANALYST us Donn Dumas MD CHEMISTRY Final Res ult [facility] [address] [place] [address], [place] from Last 3 Months or Most Recently Relevant to Health Maintenance Insurance [id number] [facility] Care Teams Air Purifier Servicer Relationship Specialty Start Date End Date Donn Dumas MD PCP - General Family Practice 11/14/16
== END 2025-03-27 10:46 | disposition home or self-care (01) ==
LOC: US 10:45
PROVIDERS: PCP Family Medicine; Visit Provider Family Medicine
DX: N17.9 Acute kidney failure, unspecified (principal); N18.9 Chronic kidney disease, unspecified; R22.41 Localized swelling, mass and lump, right lower limb; I87.8 Other specified disorders of veins
CPT/HCPCS: 76775; 93971; 93975

== ENCOUNTER 2025-04-04 08:45 | Outpatient (CLI) | payer OTHER, SELFPAY | END 2025-04-04 08:46 | disposition home or self-care (01) | LOC: NFLDREF 04-06 12:38 | PROVIDERS: PCP Family Medicine; Referring Provider Family Medicine; Visit Provider Internal Medicine Nephrology | DX: N18.30 Chronic kidney disease, stage 3 unspecified (principal); E11.22 Type 2 diabetes mellitus with diabetic chronic kidney disease; I12.9 Hypertensive chronic kidney disease with stage 1 through stage 4 chronic kidney disease, or unspecified chronic kidney disease; R53.83 Other fatigue; R68.82 Decreased libido; M10.9 Gout, unspecified | CPT/HCPCS: 80061; 80069; 82043; 82570; 82728; 83540; 83550; 83970; 84450; 84460; 84550; 86140 ==

== ENCOUNTER 2025-05-12 13:30 | Outpatient (CLI) | payer OTHER, SELFPAY | END 2025-05-12 13:31 | disposition home or self-care (01) | LOC: NFLDREF 05-17 12:53 | PROVIDERS: PCP Family Medicine; Referring Provider Family Medicine; Visit Provider Internal Medicine Nephrology | DX: E11.29 Type 2 diabetes mellitus with other diabetic kidney complication (principal); E11.22 Type 2 diabetes mellitus with diabetic chronic kidney disease; I12.9 Hypertensive chronic kidney disease with stage 1 through stage 4 chronic kidney disease, or unspecified chronic kidney disease; N18.4 Chronic kidney disease, stage 4 (severe); R80.9 Proteinuria, unspecified | CPT/HCPCS: 80069; 82043; 82570; 82728; 83540; 83550; 83970; 84550; 87086 ==

== ENCOUNTER 2025-06-12 09:46 | Outpatient (CLI) | payer OTHER, SELFPAY | END 2025-06-12 09:47 | disposition home or self-care (01) | LOC: NFLDREF 06-16 04:13 | PROVIDERS: PCP Family Medicine; Referring Provider Family Medicine; Visit Provider Internal Medicine Nephrology | DX: M10.9 Gout, unspecified (principal); R68.82 Decreased libido; N18.9 Chronic kidney disease, unspecified; E11.22 Type 2 diabetes mellitus with diabetic chronic kidney disease; I12.9 Hypertensive chronic kidney disease with stage 1 through stage 4 chronic kidney disease, or unspecified chronic kidney disease; I87.8 Other specified disorders of veins; E78.2 Mixed hyperlipidemia; E11.29 Type 2 diabetes mellitus with other diabetic kidney complication; R80.9 Proteinuria, unspecified; N17.9 Acute kidney failure, unspecified | CPT/HCPCS: 80069; 82043; 82570; 82607; 82728; 82747; 83540; 83550; 83735; 83970; 84550 ==

== ENCOUNTER 2025-07-10 14:21 | Outpatient (CLI) | payer OTHER, SELFPAY | END 2025-07-10 14:22 | disposition home or self-care (01) | LOC: NFLDREF 07-13 09:12 | PROVIDERS: PCP Family Medicine; Referring Provider Family Medicine; Visit Provider Internal Medicine Nephrology | DX: E11.22 Type 2 diabetes mellitus with diabetic chronic kidney disease (principal); I12.9 Hypertensive chronic kidney disease with stage 1 through stage 4 chronic kidney disease, or unspecified chronic kidney disease; N18.4 Chronic kidney disease, stage 4 (severe) | CPT/HCPCS: 80069; 82043; 82570 ==

== ENCOUNTER 2025-08-09 08:16 | Outpatient (CLI) | payer OTHER, SELFPAY | END 2025-08-09 08:17 | disposition home or self-care (01) | PROVIDERS: PCP Family Medicine; Referring Provider Family Medicine; Visit Provider Internal Medicine Nephrology | DX: I12.0 Hypertensive chronic kidney disease with stage 5 chronic kidney disease or end stage renal disease (principal); N18.5 Chronic kidney disease, stage 5; Z79.84 Long term (current) use of oral hypoglycemic drugs | CPT/HCPCS: 80069; 82043; 82570; 82728; 83540; 83550; 83970; 84450; 84460; 84550; 87086 ==

== ENCOUNTER 2025-08-09 16:49 | Emergency (ER) | payer OTHER, SELFPAY ==
--- OUTSIDE RECORDS SUMMARY | 2008-01-24 04:15 | XMS_ITS | Continuity of Care Document ---
Author Organization [facility] Address [address] [address] [place] [address] Phone Care Team Providers Care Paper And Pulp Mill Worker Name Role Phone Unavailable Unavailable Unavailable Allergies, Adverse Reactions, Alerts Substance Reaction Status Criticality No Known allergies Medications Medication Instructions Dosage Effective Dates (start - stop) Status Comments ATENOLOL (unknown strength) Take one tablet by mouth daily Not Available - Active Prilosec 20 mg Cap as needed - Active Procedures Procedure Date Offic/outpt E&m Estab Low-mod 8 Offic Cons New/estab Mod 40 Mi 08 Routine Serum Collection Advance Directives Directive Yes / No Effective Date File Name Resuscitation Not Answered N/A N/A Life Support Not Answered N/A N/A Intubation Not Answered N/A N/A Antibiotics Not Answered N/A N/A IV Fluid Support Not Answered N/A N/A Tube Feed Not Answered N/A N/A Other Directive N/A N/A WARNING:The information contained in this section is historical and is provided for information only and does not constitute a legal document or any assurance that the information is still accurate. Please verify the information with the yi of the legal document before using it for clinical purposes. Encounters Encounter Description Practice Location Reason(s) For Visit Diagnoses Date Provider Providers Copied on Encounter Offic/outpt E&m Estab Low-mod [facility], [address] [address], [place], [place], [id number], [place] tel:[phone] [facility] Non-alcoholic Fatty LiverAbnormal Liver Enzymes 8 No Information [place]erring [place]: [place], [address] [place], [address]. tel:[phone] Offic Cons New/estab Mod 40 Mi [facility], [address] [address], [place], [place], [address], [place] tel:[phone] [facility] Abnormal Liver Enzymes 8-200 8 Pamela Franks. [address] [facility], [address], [place], [place], [id number], [place]. tel:[phone] Referring [place]: [place], [address] [place], [address]. tel:[phone] Family History Family Member Type Diagnosis Age At Onset First degree family history Problem (finding) Colon Polyps First degree family history Problem (finding) No history of Ulcerative Colitis First degree family history Problem (finding) No history of Cancer, colon First degree family history Problem (finding) No history of Crohn's Payers Payer name Insurance type Covered republican ID Authoriza tion(s) No Information Social History Type Description Quantity Date Captured Comments Alcohol Use Details Caffeine Use Details Unknown Tobacco Use Status Smoking Status No Information Sex Male Chief Complaint And Reason For Visit No Information Reason For Referral Reason For Referral No Information History Of Present Illness Encounter Date Complaint History Of Prese nt Illness No Information Functional Status Date Functional Assessmen t No Information Instructions Date Instruction Additional Infor mation No Information Assessments Type Assessment Date No Information Patient Care Teams Name Effective Dates (start - stop) Status Members No Information
--- OUTSIDE RECORDS SUMMARY | 2008-01-24 04:15 | XMS_ITS | Continuity of Care Document ---
Author Organization [facility] Address [address] [address] [place] [address] Phone Care Team Providers Care Vp Scientific Name Role Phone Unavailable Unavailable Unavailable Allergies, [...] Copied on Encounter Offic/outpt E&m Estab Low-mod [facility], [address] [address], [place], [place], [id number], [place] tel:[phone] [facility] Non-alcoholic Fatty LiverAbnormal Liver Enzymes 8 No Information [place]: [place], [address] [place], [address]. tel:[phone] Offic Cons New/estab Mod 40 Mi [facility], [address] [address], [place], [place], [id number], [place] tel:[phone] [facility] Abnormal Liver Enzymes 8-200 8 Pamela Franks. [address] [facility], [address], [place], [place], [id number], [place]. tel:[phone] Referring [place]: [place], [address] [place], [address]. tel:[phone] Family History Family Member Type Diagnosis Age [...]
[2025-08-09] VITALS (14 sets, daily range): BP systolic 154–161; BP diastolic 95–109; PULSE 86–98; RESP 9–20; TEMP 36.8; O2SAT 97–100
--- OUTSIDE RECORDS SUMMARY | 2025-08-09 16:51 | XMS_ITS | Encounter Summary ---
Author Organization [facility] Address [address] [place] [address] Care Team Providers Care Rn Clinical Research Name Role Phone Unavailable Primary Care Provider Unavailabl e Encounter Details Date Type Department Care Team (Late st Contact Info) Description 08/09/2025 Orders Only Division of Nephrology and Hypertension in [place], [place] [address] [place] [address] External, Ordering ProviderAvis Social History Tobacco Use Types Packs/Day Years Used Date Smoking Tobacco: Some Days Cigarettes 0.3 41 Started: 09/28/1984 Passive Smoke Exposure: Past Smokeless Tobacco: Never Alcohol Use Standard Drinks/Week Comments Not Currently 0 (1 standard drink = 0.6 oz pure alcohol) I was a very heavy drinker for about 20 years. I quit a little over 4 years ago. Hunger Vital Sign Answer Date Recorded Within the past 12 months, y ou worried that your food would run out before you got the money to buy more. Never true 05/09/20 25 Within the past 12 months, t he food you bought just didn't last and you didn't have money to get more. Never true 05/09/2025 PRAPARE - Transportation Answer Date Re corded In the past 12 months, has l ack of transportation kept you from medical appointments or from getting medications? No 04/28 In the past 12 months, has l ack of transportation kept you from meetings, work, or from getting things needed for daily living? No 05/09/2025 [facility] Utilities Answer Date Recorded In the past 12 months has e electric, gas, oil, or water company threatened to shut off services in your home? No 05/09/2025 Housing Stability Answer Date Recorded What is your living situation today? I have a st unique place to live 05/09/2025 Sex and Gender Information Value Date Recorded Sex Assigned at Male 05/10/2025 12:19 PM CDT Legal Sex Male 9:59 AM CDT Gender Identity Male 05/10/2025 12:19 PM CDT Sexual Orientation Straight 05/10/2025 12 :19 PM CDT documented as of this encounter Plan of Treatment Upcoming Encounters Date Type Department Care Team (Latest Contact Info) Description 08/25/2025 10:00 AM POLICE PATROL OFFICER Office Visit [facility] in [place], [place] [address] [place] [phone] Chito Tran, EDWARD, C.N.P., M.S. [address] [place] [phone] 09/05/2025 2:00 PM POLICE PATROL OFFICER Telemedicine Department of Patient Education in [place], [place] [address] [place] [phone] Kelly Cruz M.D. [address] [place] [phone] 09/05/2025 3:30 PM POLICE PATROL OFFICER Telemedicine Division of Pulmonary Medicine in [place], [place] [address] [place] [phone] Kelly Cruz M.D. [address] [place] [phone] 09/11/2025 8:00 AM POLICE PATROL OFFICER Lab Department of Laboratory Medicine and Pathology, [facility] in [place], [place] [address] [place] [phone] Kelly Cruz M.D. [address] [place] [phone] 09/11/2025 8:10 AM POLICE PATROL OFFICER Lab Department of Laboratory Medicine and Pathology, [facility] in [place], [place] [address] [place] [phone] Kelly Crzu M.D. [address] [place] [address] 09/11/2025 8:40 AM POLICE PATROL OFFICER Ancillary Procedure Department of Cardiovascular Medicine in [place], [place] [address] [place] [address] Kelly Cruz M.D. [address] [place] [phone] 09/11/2025 9:15 AM POLICE PATROL OFFICER Appointment Department of Radiology, [facility], in [place], [place] [address] [place] [address] Kelly Cruz M.D. [address] [place] [phone] 09/11/2025 10:00 AM POLICE PATROL OFFICER [facility] in [place], [place] [address] [place] [address] Kelly Cruz M.D. [address] [place] [phone] 09/11/2025 11:45 AM POLICE PATROL OFFICER Appointment Department of Radiology, [facility], in [place], [place] [address] [place] [address] Kelly Cruz M.D. [address] [place] [phone] 09/11/2025 1:30 PM POLICE PATROL OFFICER Comprehensive [facility] in [place], [place] [address] [place] [address] Tiny Lares M.D. [address] [place] [phone] 09/11/2025 2:55 PM POLICE PATROL OFFICER Appointment Department of Cardiovascular Diseases in [place], [place] [address] [place] [address] Kelly Cruz M.D. [address] [place] [phone] 09/12/2025 7:15 AM POLICE PATROL OFFICER Education [facility] in [place], [place] [address] [place] [address] Kelly Cruz M.D. [address] [place] [phone] 09/12/2025 8:00 AM POLICE PATROL OFFICER Comprehensive Visit Hans méndez [facility] Transplantation and Clinical Regeneration in [place], [place] [address] [place] [address] Kelly Cruz M.D. [address] [place] [phone] 09/12/2025 10:00 AM POLICE PATROL OFFICER Clinical Support Hans méndez [facility] Transplantation and Clinical Regeneration in [place], [place] [address] [place] [address] Kelly Cruz M.D. [address] [place] [phone] Eugenie Duke M.S.W., L.I.C.S.W. [address] [place] [phone] 09/12/2025 11:00 AM POLICE PATROL OFFICER Comprehensive Visit [facility] in [place], [place] [address] [place] [address] Precious Stahl M.D. [address] [place] [phone] 09/12/2025 2:40 PM POLICE PATROL OFFICER Virtual Visit [facility] Transplantation and Clinical Regeneration in [place], [place] [address] [place] [address] Kelly Cruz M.D. [address] [place] [phone] 09/13/2025 3:00 PM POLICE PATROL OFFICER Nurse Only [facility] Transplantation and Clinical Regeneration in [place], [place] [address] [place] [address] Kelly Cruz M.D. [address] [place] [phone] 09/13/2025 4:00 PM POLICE PATROL OFFICER Office Visit [facility] Trans[facility] Clinical [facility] in [place], [place] [address] [place] [address] Tiny Lares M.D. [address] [place] [phone] 09/15/2025 4:00 PM POLICE PATROL OFFICER Telemedicine Division of Nephrology and Hypertension in [place], [place] [address] [place] [address] Kelly Cruz M.D. [address] [place] [phone] Brianna Hahn, RDN, LD [address] [place] [phone] documented as of this encounter Procedures Procedure Name Priority Date/Time Associated Diagnosis Comments EXTP URINALYSIS WITH MICROSCOPY, URINE Routine 08/09/2025 8:16 AM POLICE PATROL OFFICER IRON AND TOT IRON-BINDING CAPACITY, S/P Routine 08/09/2025 8:16 AM POLICE PATROL OFFICER URIC ACID, S/P Routine 08/09/2025 8:16 AM POLICE PATROL OFFICER PHOSPHORUS (INORGANIC), S Routine 08/09/2025 8:16 AM POLICE PATROL OFFICER FERRITIN, S Routine 08/09/2025 8:16 AM POLICE PATROL OFFICER COMPREHENSIVE METABOLIC PANEL, S/P Routine 08/09/2025 8:16 AM POLICE PATROL OFFICER documented in this encounter Results * Iron and Total Iron-Binding Capacity (08/09/2025 8:16 AM POLICE PATROL OFFICER) EXT Iron 60 49 - 181 ug/dL [facility] EXT Total Iron Binding Capacity 300 261 - 462 ug/dL [facility] 08/09/2025 8:16 AM POLICE PATROL OFFICER Narrative CryoocyteT [facility] - 08/09/2025 2:56 PM POLICE PATROL OFFICER Source result document attached to Order Number [id number] (COMPREHENSIVE METABOLIC PANEL, BLOOD) dated 08/09/2025. External results verified in Extract by Vilma Oconnell on 08/09/2025 at 03:16 PM. us Ordering Provider External M.D. LAB BLOOD ADD-ON Final Result [facility] [address] [place] [address] * Ferritin (08/09/2025 8:16 AM POLICE PATROL OFFICER) EXT Ferritin, S 180.0 17.9 - 464.0 ng/mL [facility] 08/09/2025 8:16 AM POLICE PATROL OFFICER Narrative Recroup [facility] - 08/09/2025 2:56 PM POLICE PATROL OFFICER Source result document attached to Order Number [id number] (COMPREHENSIVE METABOLIC PANEL, BLOOD) dated 08/09/2025. External results verified in Extract by Vilma Oconnell on 08/09/2025 at 03:16 PM. us Ordering Provider Ernesto Albarran LAB BLOOD ADD-ON Final Result Performing Organization Address [facility] de Phone Number Recroup [facility] [address] [phone] * Phosphorus Inorganic (08/09/2025 8:16 AM POLICE PATROL OFFICER) EXT Phosphorus (Inorganic), S 4.1 2.5 - 4.5 mg/dL [facility] 08/09/2025 8:16 AM POLICE PATROL OFFICER Narrative SOFTLAB [facility] - 08/09/2025 2:56 PM POLICE PATROL OFFICER Source result document attached to Order Number [id number] (COMPREHENSIVE METABOLIC PANEL, BLOOD) dated 08/09/2025. External results verified in Extract by Vilma Oconnell on 08/09/2025 at 03:16 PM. us Ordering Provider Ernesto Albarran LAB BLOOD ADD-ON Final Result Performing Organization Address [facility] Phone Number Recroup [facility] [address] [phone] * Uric Acid (08/09/2025 8:16 AM POLICE PATROL OFFICER) EXT Uric Acid, S 6.9 2.2 - 8.4 mg/dL [facility] 08/09/2025 8:16 AM POLICE PATROL OFFICER Narrative SOFTLAB [facility] - 08/09/2025 2:56 PM POLICE PATROL OFFICER Source result document attached to Order Number [id number] (COMPREHENSIVE METABOLIC PANEL, BLOOD) dated 08/09/2025. External results verified in Extract by Vilma Oconnell on 08/09/2025 at 03:16 PM. us Ordering Provider Ernesto Albarran LAB BLOOD ADD-ON Final Result Performing Organization Address [facility]/ZIP Co de Phone Number [facility] [address] [place] [id number], [facility] [phone] * (ABNORMAL) EXT Urinalysis with Microscopy, Urine (08/09/2025 8:16 AM POLICE PATROL OFFICER) EXT Creatinine, Urine 5.1(H) 0.5 - 1.5 mg/dL [facility] EXT Glucose Qualitative, Urine 83 60 - 115 mg/dL [facility] 08/09/2025 8:16 AM POLICE PATROL OFFICER Narrative [facility] - 08/09/2025 2:56 PM POLICE PATROL OFFICER Source result document attached to Order Number [id number] (COMPREHENSIVE METABOLIC PANEL, BLOOD) dated 08/09/2025. External results verified in Extract by Vilma Oconnell on 08/09/2025 at 03:16 PM. us Ordering Provider External vAis LAB URINE ORDERA BLES Final Result Performing Organization Address [facility] Co de Phone Number [facility] [address] [place], [place] [address] [phone] * (ABNORMAL) Comprehensive Metabolic Panel (08/09/2025 8:16 AM POLICE PATROL OFFICER) Pathologist [facility] EXT Sodium 137 135 - 149 mmol/L [facility] EXT Potassium critical 3.6 - 5.1 mmol/L [facility] EXT Chloride 100 96 - 114 mmol/L [facility] EXT CO2 20 20 - 32 mmol/L [facility] EXT Anion Gap 17(H) 7 - 15 mEq/L [facility] EXT BUN (Blood Urea Nitrogen) 79(H) 7 - 30 mg/dL [facility] EXT Creatinine 5.1(H) 0.5 - 1.5 mg/dL [facility] EXT Estimated GFR (eGFR) 13 ml/min [facility] EXT Calcium, Total 8.7 8.4 - 10.6 mg/dL [facility] EXT Glucose 83 60 - 115 mg/dL [facility] EXT Albumin 4.4 3.3 - 5.0 g/dL [facility] EXT AST 27 12 - 35 U/L [facility] EXT ALT 26 4 - 50 U/L [facility] 08/09/2025 8:16 AM POLICE PATROL OFFICER Narrative [facility] - 08/09/2025 2:56 PM POLICE PATROL OFFICER External results verified in Extract by Vilma Oconnell on 08/09/2025 at 03:16 PM. us Ordering Provider External MCherry LAB BLOOD ADD-ON Final Result [facility] [address] [place] [address], [facility] [phone] documented in this encounter Visit Diagnoses Not on filedocumented in this encounter
--- OUTSIDE RECORDS SUMMARY | 2025-08-09 16:51 | XMS_ITS | Encounter Summary ---
Author Organization [facility] Address [address] [place] [address] Care Team Providers Care Early Childhood Education Specialist Name Role Phone Unavailable Primary Care Provider Unavailabl e Encounter Details Date Type Department Care Team (Late st Contact Info) Description 08/09/2025 Orders Only Division of Nephrology and Hypertension in [place], [place] [address] [place] [address] External, Ordering ProviderAvis Social History Tobacco Use [...] things needed for daily living? No 05/09/2025 [facility] Utilities Answer Date Recorded In the [...] (Latest Contact Info) Description 08/25/2025 10:00 AM AUTOMATIC SPREADER OPERATOR Office Visit [facility] in [place], [place] [address] [place] [phone] Chito Tran, EDWARD, C.N.P., M.S. [address] [place] [phone] 09/05/2025 2:00 PM AUTOMATIC SPREADER OPERATOR Telemedicine Department of Patient Education in [place], [place] [address] [place] [phone] Kelly Cruz M.D. [address] [place] [phone] 09/05/2025 3:30 PM AUTOMATIC SPREADER OPERATOR Telemedicine Division of Pulmonary Medicine in [place], [place] [address] [place] [phone] Kelly Cruz M.D. [address] [place] [phone] 09/11/2025 8:00 AM AUTOMATIC SPREADER OPERATOR Lab Department of Laboratory Medicine and Pathology, [facility] in [place], [place] [address] [place] [phone] Kelly Cruz M.D. [address] [place] [phone] 09/11/2025 8:10 AM AUTOMATIC SPREADER OPERATOR Lab Department of Laboratory Medicine and Pathology, [facility] in [place], [place] [address] [place] [phone] Kelly Cruz M.D. [address] [place] [address] 09/11/2025 8:40 AM AUTOMATIC SPREADER OPERATOR Ancillary Procedure Department of Cardiovascular Medicine in [place], [place] [address] [place] [address] Kelly Cruz M.D. [address] [place] [phone] 09/11/2025 9:15 AM AUTOMATIC SPREADER OPERATOR Appointment Department of Radiology, [facility], in [place], [place] [address] [place] [address] Kelly Cruz M.D. [address] [place] [phone] 09/11/2025 10:00 AM AUTOMATIC SPREADER OPERATOR [facility] in [place], [place] [address] [place] [address] Kelly Cruz M.D. [address] [place] [phone] 09/11/2025 11:45 AM AUTOMATIC SPREADER OPERATOR Appointment Department of Radiology, [facility], in [place], [place] [address] [place] [address] Kelly Cruz M.D. [address] [place] [phone] 09/11/2025 1:30 PM AUTOMATIC SPREADER OPERATOR Comprehensive [facility] in [place], [place] [address] [place] [address] Tiny Lares M.D. [address] [place] [phone] 09/11/2025 2:55 PM AUTOMATIC SPREADER OPERATOR Appointment Department of Cardiovascular Diseases in [place], [place] [address] [place] [address] Kelly Cruz M.D. [address] [place] [phone] 09/12/2025 7:15 AM AUTOMATIC SPREADER OPERATOR Education [facility] in [place], [place] [address] [place] [address] Kelly Cruz M.D. [address] [place] [phone] 09/12/2025 8:00 AM AUTOMATIC SPREADER OPERATOR Comprehensive Visit Hans méndez [facility] Transplantation and Clinical Regeneration in [place], [place] [address] [place] [address] Kelly Cruz M.D. [address] [place] [phone] 09/12/2025 10:00 AM AUTOMATIC SPREADER OPERATOR Clinical Support Hans méndez [facility] Transplantation and Clinical Regeneration in [place], [place] [address] [place] [address] Kelly Cruz M.D. [address] [place] [phone] Eugenie Duke M.S.W., L.I.C.S.W. [address] [place] [phone] 09/12/2025 11:00 AM AUTOMATIC SPREADER OPERATOR Comprehensive Visit [facility] Trans[facility] in [place], [place] [address] [place] [address] Precious Stahl M.D. [address] [place] [phone] 09/12/2025 2:40 PM AUTOMATIC SPREADER OPERATOR Virtual Visit [facility] Transplantation and Clinical Regeneration in [place], [place] [address] [place] [address] Kelly Cruz M.D. [address] [place] [phone] 09/13/2025 3:00 PM AUTOMATIC SPREADER OPERATOR Nurse Only [facility] Transplantation and Clinical Regeneration in [place], [place] [address] [place] [address] Kelly Cruz M.D. [address] [place] [phone] 09/13/2025 4:00 PM AUTOMATIC SPREADER OPERATOR Office Visit [facility] Transplantation and Clinical Regeneration in [place], [place] [address] [place] [address] Tiny Lares M.D. [address] [place] [phone] 09/15/2025 4:00 PM AUTOMATIC SPREADER OPERATOR Telemedicine Division of Nephrology and Hypertension in [place], [place] [address] [place] [address] Kelly Cruz M.D. [address] [place] [phone] Brianna Hahn, RDN, LD [address] [place] [phone] documented as of this encounter Procedures Procedure Name Priority Date/Time Associated Diagnosis Comments EXTP URINALYSIS WITH MICROSCOPY, URINE Routine 08/09/2025 11:06 AM AUTOMATIC SPREADER OPERATOR documented in this encounter Results * (ABNORMAL) EXT Urinalysis with Microscopy, Urine (08/09/2025 11:06 AM AUTOMATIC SPREADER OPERATOR) EXT Color Yellow Yellow [facility] EXT Appearance, Urine Clear Clear [facility] EXT Glucose Qualitative, Urine Negative Negative [facility] EXT Bilirubin, Urine Negative Negative [facility] EXT Ketones, POCT, Urine Negative Negative [facility] EXT Specific [place], POCT, Urine 1.015 1.000 - 1.030 [facility] EXT Blood, Urine 2+(A) Negative [facility] EXT pH, Random, Urine 6.5 5.0 - 8.5 [facility] EXT Protein, Urine 3+(A) Negative [facility] EXT Urobilinogen, Urine 0.2 0.2 - 1.0 [facility] EXT Nitrite, Urine Negative Negative [facility] EXT Leukocyte Esterase, Urine Negative Negative [facility] EXT Red Blood Cells, U 0-2 0 - 2 [facility] EXT White Blood Cells, U 0-2 0 - 5 [facility] EXT Squamous Cells Few None-Few [facility] EXT Bacteria Few(H) None [facility] 08/09/2025 11:0 6 AM AUTOMATIC SPREADER OPERATOR Narrative [facility] - 08/09/2025 1:19 PM AUTOMATIC SPREADER OPERATOR External results verified in Extract by Vilma Oconnell on 08/09/2025 at 01:15 PM. us Ordering Provider External M.DЕлена LAB URINE ORDERA BLES Final Result [facility] [address] [place] [address], [facility] [phone] documented in this encounter Visit Diagnoses Not on filedocumented in this encounter
--- OUTSIDE RECORDS SUMMARY | 2025-08-09 16:52 | XMS_ITS | Encounter Summary ---
Author Organization [facility] Address [address] [place] [address] Care Team Providers Care Marketing Strategy Analyst Name Role Phone Unavailable Primary Care Provider Unavailabl e Encounter Details Date Type Department Care Team (Late st Contact Info) Description 08/09/2025 Orders Only Division of Nephrology and Hypertension in [place], [place] [address] [place] [address] External, Ordering ProviderAvis Social History Tobacco Use [...] things needed for daily living? No 05/09/2025 [facility] Utilities Answer Date Recorded In the [...] (Latest Contact Info) Description 08/25/2025 10:00 AM FOREST AIDE Office Visit [facility] in [place], [place] [address] [place] [phone] Chito Tran, EDWARD, C.N.P., M.S. [address] [place] [phone] 09/05/2025 2:00 PM FOREST AIDE Telemedicine Department of Patient Education in [place], [place] [address] [place] [phone] Kelly Cruz M.D. [address] [place] [phone] 09/05/2025 3:30 PM FOREST AIDE Telemedicine Division of Pulmonary Medicine in [place], [place] [address] [place] [phone] Kelly Cruz M.D. [address] [place] [phone] 09/11/2025 8:00 AM FOREST AIDE Lab Department of Laboratory Medicine and Pathology, [facility] in [place], [place] [address] [place] [phone] Kelly Cruz M.D. [address] [place] [phone] 09/11/2025 8:10 AM FOREST AIDE Lab Department of Laboratory Medicine and Pathology, [facility] in [place], [place] [address] [place] [phone] Kelly Cruz M.D. [address] [place] [address] 09/11/2025 8:40 AM FOREST AIDE Ancillary Procedure Department of Cardiovascular Medicine in [place], [place] [address] [place] [address] Kelly Cruz M.D. [address] [place] [phone] 09/11/2025 9:15 AM FOREST AIDE Appointment Department of Radiology, [facility], in [place], [place] [address] [place] [address] Kelly Cruz M.D. [address] [place] [phone] 09/11/2025 10:00 AM FOREST AIDE [facility] in [place], [place] [address] [place] [address] Kelly Cruz M.D. [address] [place] [phone] 09/11/2025 11:45 AM FOREST AIDE Appointment Department of Radiology, [facility], in [place], [place] [address] [place] [address] Kelly Cruz M.D. [address] [place] [phone] 09/11/2025 1:30 PM FOREST AIDE Comprehensive [facility] in [place], [place] [address] [place] [address] Tiny Lares M.D. [address] [place] [phone] 09/11/2025 2:55 PM FOREST AIDE Appointment Department of Cardiovascular Diseases in [place], [place] [address] [place] [address] Kelly Cruz M.D. [address] [place] [phone] 09/12/2025 7:15 AM FOREST AIDE Education [facility] in [place], [place] [address] [place] [address] Kelly Cruz M.D. [address] [place] [phone] 09/12/2025 8:00 AM FOREST AIDE Comprehensive Visit Hans méndez [facility] Transplantation and Clinical Regeneration in [place], [place] [address] [place] [address] Kelly Cruz M.D. [address] [place] [phone] 09/12/2025 10:00 AM FOREST AIDE Clinical Support Hans méndez [facility] Transplantation and Clinical Regeneration in [place], [place] [address] [place] [address] Kelly Cruz M.D. [address] [place] [phone] Eugenie Duke M.S.W., L.I.C.S.W. [address] [place] [phone] 09/12/2025 11:00 AM FOREST AIDE Comprehensive [facility] in [place], [place] [address] [place] [address] Precious Stahl M.D. [address] [place] [phone] 09/12/2025 2:40 PM FOREST AIDE Virtual [facility] in [place], [place] [address] [place] [address] Kelly Cruz M.D. [address] [place] [phone] 09/13/2025 3:00 PM FOREST AIDE Nurse Only [facility] Transplantation and Clinical Regeneration in [place], [place] [address] [place] [address] Kelly Cruz M.D. [address] [place] [phone] 09/13/2025 4:00 PM FOREST AIDE Office [facility] in [place], [place] [address] [place] [address] Tiny Lares M.D. [address] [place] [phone] 09/15/2025 4:00 PM FOREST AIDE Telemedicine Division of Nephrology and Hypertension in [place], [place] [address] [place] [address] Kelly Cruz M.D. [address] [place] [phone] Brianna Hahn, RDN, LD [address] [place] [phone] documented as of this encounter Procedures Procedure Name Priority Date/Time Associated Diagnosis Comments CBC WITH DIFFERENTIAL, B Routine 08/09/2025 8:16 AM FOREST AIDE HEMOGLOBIN A1C, B Routine 08/09/2025 8:1 6 AM FOREST AIDE documented in this encounter Results * (ABNORMAL) CBC with Differential, Blood (08/09/2025 8:16 AM FOREST AIDE) EXT Leukocytes 13.10(H) 4.50 - 11.00 K/uL [facility] EXT RBC 3.52(L) 4.30 - 5.90 m/uL [facility] EXT Hemoglobin 10.4(L) 13.5 - 17.5 gm/dL [facility] EXT Hematocrit 29.9(L) 37.0 - 53.0 % [facility] EXT MCV 85 80 - 100 fL [facility] EXT Platelet Count 334 140 - 440 K/uL [facility] 08/09/2025 8:16 AM FOREST AIDE Narrative [facility] - 08/09/2025 10:31 AM FOREST AIDE Source result document attached to Order Number [id number] (HEMOGLOBIN A1C, B) dated 08/09/2025. External results verified in Extract by Vilma Oconnell on 08/09/2025 at 10:30 AM. us Ordering Provider External Avis LAB BLOOD ADD-ON Final Result [id number] [place] [address], [facility] [phone] * Hemoglobin A1c (08/09/2025 8:16 AM FOREST AIDE) Pathologist [facility] EXT Hemoglobin A1c, B 5.4 0 - 5.6 % [facility] 08/09/2025 8:16 AM FOREST AIDE Narrative [facility] - 08/09/2025 10:31 AM FOREST AIDE External results verified in Extract by Vilma Oconnell on 08/09/2025 at 10:30 AM. us Ordering Provider External M.D. LAB BLOOD ADD-ON Final Result [facility] [id number], [facility] [phone] documented in this encounter Visit Diagnoses Not on filedocumented in this encounter
--- NOTE | 2025-08-09 17:11 | ED.GENADULT ---
HPI - General Adult General Time Seen by Provider: 17:11 Date Seen: 08/09/25 Chief complaint: Unspecified Complaint, Adult Stated complaint: high potassium level Time Seen by Provider: 08/09/25 17:10 Source: patient and RN notes reviewed Mode of arrival: ambulatory Limitations: no limitations History of Present Illness HPI narrative: This 55-year-old male with stage 5 chronic kidney disease is coming in with a potassium level that was 6.1 on routine monitoring done this morning. He is in the process of being evaluated for kidney transplant. He sees [facility] in out reach here. He has underlying diabetic hypertensive and ischemic nephrosclerosis. He had a recent normal hemoglobin A1c documented in his note from a nephrology with Dr. Michel on 07/11/2025. His creatinine was 5.1 today, sodium 137, BUN 79, glucose 83, hemoglobin A1c 5.4, calcium 8.7, phosphorus 4.1. These were done around 8:00 a.m. this morning. Patient states he is asymptomatic, not feeling weak, no nausea. He was home sleeping, works overnight at [employer]. He still makes urine. Related Data Home Medications ?Medication ?Instructions ?Recorded ?Confirmed losartan 100 mg tablet 100 mg PO QDAY 05/15/25 08/09/25 rosuvastatin 40 mg tablet (Crestor) 40 mg PO QDAY 05/15/25 08/09/25 tirzepatide 2.5 mg/0.5 mL 2.5 mg subcut QWEEK 07/11/25 08/09/25 subcutaneous pen injector amlodipine 5 mg tablet 5 mg PO DAILY 08/09/25 08/09/25 Previous Rx's ?Medication ?Instructions ?Recorded allopurinol 100 mg tablet 200 mg (2 x 100 mg) PO QDAY #180 05/16/24 tabs metformin 500 mg tablet,extended 1,000 mg (2 x 500 mg) PO QDAY #180 02/24/25 release 24 hr tabs carvedilol 12.5 mg tablet 12.5 mg PO BID #180 tabs 03/13/25 Allergies Allergy/AdvReac Type Severity Reaction Status Date / Time amlodipine Allergy Mild leg Verified 07/11/25 15:00 swelling Review of Systems Status of ROS: Reports: 6 or more systems reviewed and unremarkable except as noted in History and below [facility] Medical History Noncompliance with medication regimen ?Z91.148 - Patient's other noncompliance with medication regimen for other reason (ICD-10) Venous stasis ulcers ?I83.009 - Varicose veins of unspecified lower extremity with ulcer of unspecified site (ICD-10) ?L97.909 - Non-pressure chronic ulcer of unspecified part of unspecified lower leg with unspecified severity (ICD-10) Renal failure (ARF), acute on chronic ?N17.9 - Acute kidney failure, unspecified (ICD-10) ?N18.9 - Chronic kidney disease, unspecified (ICD-10) Venous stasis ulcer of ankle ?I83.003 - Varicose veins of unspecified lower extremity with ulcer of ankle (ICD-10) ?L97.309 - Non-pressure chronic ulcer of unspecified ankle with unspecified severity (ICD-10) Inguinal hernia ?K40.90 - Unilateral inguinal hernia, without obstruction or gangrene, not specified as recurrent (ICD-10) Tobacco abuse ?Z72.0 - Tobacco use (ICD-10) History of peritonsillar abscess ?Z87.09 - Personal history of other diseases of the respiratory system (ICD-10) Social History Narrative: Occupation: Retail Current smoker What is your current living situation?: I presently have a place to live Problems where you live: no known problems In the past 12 months, utilities in danger of being shut off: no In past 12 months, lack of transportation kept you from medical appts, meetings, work, or getting things needed for daily living: no In the past 12 mos, have been you worried that your food would run out before you had money to buy more?: never true In the past 12 mos, the food you bought just didn't last and you didn't have money to buy more?: never true Smoking Status: Current every day smoker How often does anyone, including family, friends and others, physically hurt you: never How often does anyone, including family, friends and others, insult or talk down to you: never How often does anyone, including family, friends and others, threaten you with harm: never How often does anyone, including family, friends and others, scream or curse at you: never Exam Const: Vital Signs, click to edit/add: Vital Signs - 24 hr 08/09/25 17:17 08/09/25 17:37 08/09/25 17:45 Temperature 98.2 F Pulse Rate 91 90 Pulse Rate [Pulse Oximeter] 98 Respiratory Rate 20 13 Blood Pressure Blood Pressure [Ri ght Upper Arm] 161/100 H Pulse Oximetry 98 98 98 Oxygen Delivery Me thod Room Air 08/09/25 17:47 08/09/25 18:00 08/09/25 18:02 Temperature Pulse Rate 87 86 87 Pulse Rate [Pulse Oximeter] Respiratory Rate 14 18 16 Blood Pressure 155/105 H 156/99 H Blood Pressure [Ri ght Upper Arm] Pulse Oximetry 97 97 97 Oxygen Delivery Me thod 08/09/25 18:15 Temperature Pulse Rate 92 Pulse Rate [Pulse Oximeter] Respiratory Rate 9 L Blood Pressure Blood Pressure [Ri ght Upper Arm] Pulse Oximetry 98 Oxygen Delivery Me thod This 55-year-old male was sleeping when I came into the room, awakens easily. He is alert, interactive, no apparent distress. Sclera clear, conjugate gaze. Symmetrical facial function, speech normal. Neck supple, thin, no jugular venous distension, no masses. Lungs are clear, good air entry, wheeze or crackles, no tachypnea, no accessory muscle use. CV regular rate and rhythm, no murmur, normal S1-S2. Abdomen is soft, nontender, nondistended, organomegaly, rebound or guarding. He has no lower extremity edema. Documenting provider has reviewed patient's vital signs: yes Course Course ED Course: His EKG on arrival is reassuring. I have reviewed this with him. He will be on cardiac monitoring and pulse oximetry while here given hyperkalemia. We will recheck a basic metabolic panel at this time. I have initiated some normal saline. If potassium is confirmed elevated, will give some calcium gluconate, will need to talk to Nephrology as this patient may need to initiate dialysis at this time. Certainly could give him IV Lasix as he still produces urine. Reevaluation(s) Time of Reevaluation #1: 18:54 Reevaluation #1: Reviewed with patient that his potassium is normal here, creatinine is at 4.9. His potassium was 4.5 on our draw here. Do have to wonder if his potassium of 6.1 this morning was potentially hemolyzed specimen. His EKG is normal, he is asymptomatic and reviewed with him it is unlikely to have a false normal potassium on lab testing. He will contact his nephrology people but at this time he can discharge to home. Did offer him a note to be home tonight to rest but he would prefer to go to work. No hypoxia or arrhythmia on monitoring while here. Vital Signs Vital signs: Initial Vital Signs Temperature 98.2 F 08/09/25 17:17 Temperature Source Temporal Artery Scan 08/09/25 17:17 Pulse Rate 98 08/09/25 17:17 Respiratory Rate 20 08/09/25 17:17 Blood Pressure 161/100 H 08/09/25 17:17 Blood Pressure Mean 120 H 08/09/25 17:17 Pulse Oximetry 98 08/09/25 17:17 Oxygen Delivery Method Room Air 08/09/25 17:17 Vital Signs Temperature 98.2 F 08/09/25 17:17 Pulse Rate 98 08/09/25 17:17 Respiratory Rate 20 08/09/25 17:17 Blood Pressure 161/100 H 08/09/25 17:17 Pulse Oximetry 98 08/09/25 17:17 Oxygen Delivery Method Room Air 08/09/25 17:17 Temperature 98.2 F 08/09/25 17:17 Pulse Rate 92 08/09/25 18:15 Respiratory Rate 9 L 08/09/25 18:15 Blood Pressure 156/99 H 08/09/25 18:02 Pulse Oximetry 98 08/09/25 18:15 Oxygen Delivery Method Room Air 08/09/25 17:17 Medications Administered Medications: Generic Name Dose Route Start Last Admin Trade Name Freq PRN Reason Stop Dose Admin Sodium Chloride 250 mls @ 250 mls/hr 08/09/25 17:55 08/09/25 18:23 0.9 % Sodium Chloride 250 Ml IV 08/09/25 18:54 250 mls/hr .Q1H ONE Administration Medical Decision Making Lab Data Lab results reviewed: Yes I reviewed the patient's lab results Labs: Lab Results 08/09/25 Range/Units 17:38 VBG pH 7.360 (7.32-7.43) VBG pCO2 38 L (40-50) mmHG VBG pO2 63.1 H (25-47) mmHG VBG HCO3 22 (21-28) mmol/L Sodium 137 (135-149) mmol/L Potassium 4.5 (3.6-5.1) mmol/L Chloride 103 (96-114) mmol/L Carbon Dioxide 21 (20-32) mmol/L Anion Gap 13 (7-15) mEq/L BUN 76 H (7-30) mg/dL Creatinine 4.9 H (0.5-1.5) mg/dL Estimated GFR 13 ml/min Glucose 87 (60-115) mg/dL Calcium 8.5 (8.4-10.6) mg/dL ECG Data Attestation: I personally reviewed and interpreted this ECG as follows: (Normal sinus rhythm, 87 beats per minute. Nonspecific ST segment changes.) Prior ECG tracings: not available for review Discharge Plan Discharge Clinical Impression: Chronic kidney disease Qualifiers: Chronic kidney disease stage: stage 3 (moderate) Chronic kidney disease stage 3 subtype: stage 3a (GFR 45-59) Qualified Code(s): N18.31 - Chronic kidney disease, stage 3a Patient Disposition: Home, Self-Care Condition: Stable Instructions: Chronic Kidney Disease (ED), Chronic Kidney Disease Diet (DC) Additional Instructions: Potassium was normal here, do wonder if your potassium from this morning had a component of hemolysis which can elevate the potassium falsely on blood testing. Please contact your diesel trailer mechanic tomorrow for further guidance and recommendations for repeat testing. Activity Level: Activity as Tolerated Prescriptions: No Action carvedilol 12.5 mg tablet 12.5 mg PO BID Qty: 180 1RF Rx Instructions: must administer with a meal/food metformin 500 mg tablet extended release 24 hr 1,000 mg PO QDAY Qty: 180 1RF losartan 100 mg tablet 100 mg PO QDAY rosuvastatin [Crestor] 40 mg tablet 40 mg PO QDAY tirzepatide 2.5 mg/0.5 mL pen injector 2.5 mg subcut QWEEK Rx Instructions: for 4 weeks amlodipine 5 mg tablet 5 mg PO DAILY allopurinol 100 mg tablet 200 mg PO QDAY Qty: 180 0RF Follow Up/Referrals: Juma Bravo MD [Primary Care Provider, Family Practice] Stand Alone Forms: [facility] Info Instructions Procedures ABG Interpretation ABG Results: 08/09/25 17:38 VBG pH 7.360 VBG pCO2 38 L VBG pO2 63.1 H VBG HCO3 22
[2025-08-09 18:05] LABS: HCO3 VBG 22 mmol/L (21-28); PCO2 VBG 38 mmHG (40-50); PO2 VBG 63.1 mmHG (25-47); pH VBG 7.360 (7.32-7.43)
[2025-08-09 18:21] LABS: Chloride* 103 mmol/L (96-114); Potassium* 4.5 mmol/L (3.6-5.1); Sodium* 137 mmol/L (135-149)
[2025-08-09] MEDS: 0.9 % SODIUM CHLORIDE 250 ml 250 ML IV (18:23)
[2025-08-09 18:24] LABS: Anion Gap 13 mEq/L (7-15); Blood Urea Nitrogen* 76 mg/dL (7-30); Calcium* 8.5 mg/dL (8.4-10.6); Carbon Dioxide* 21 mmol/L (20-32); Creatinine* 4.9 mg/dL (0.5-1.5); Estimated Glomerular Filt Rate 13 ml/min; Glucose* 87 mg/dL (60-115)
== END 2025-08-09 19:14 | disposition home or self-care (01) ==
PROVIDERS: Emergency Provider Family Medicine; PCP Family Medicine
DX: E87.5 Hyperkalemia (principal); I12.0 Hypertensive chronic kidney disease with stage 5 chronic kidney disease or end stage renal disease; N18.5 Chronic kidney disease, stage 5; Z79.84 Long term (current) use of oral hypoglycemic drugs
CPT/HCPCS: 36415; 80048; 80069; 82043; 82570; 82728; 82803; 83540; 83550; 83970; 84450; 84460; 84550; 87086; 93005; 94761; 96360; 99284; 99285; J7050